=== PATIENT | female | born 1930 | race Caucasian/White ===

== ENCOUNTER 2018-04-30 15:55 | Inpatient (IN) | payer MEDICARE ==
[~2018-04-30] VITALS: Ht 177.8 cm; Wt 111.6 kg
[~2018-04-30 15:55] MED LIST: Z.0.HYDROCHLOROTHIA2 PO; Z.0.LISINOPRIL40 MG PO; Z.0.PANTOPRAZOLE SO4 PO; Z.0.SIMVASTATIN40 MG PO
[2018-04-30 17:08] LABS: BASOPHILS # (AUTO) 0.1 (0.0-0.1); BASOPHILS % 0.4 % (0.0-1.0); EOSINOPHILS # (AUTO) 0.1 (0.0-0.4); EOSINOPHILS % 0.7 % (0.0-6.0); HEMATOCRIT 33.9 % (34.2-44.1); LYMPHOCYTES # (AUTO) 3.4 (1.0-3.2); LYMPHOCYTES % 22.8 % (18.0-39.1); MEAN CORPUSCULAR HGB CONC 32.4 g/dL (31-35); MEAN CORPUSCULAR VOLUME 89.4 fL (81-99); MONOCYTES # (AUTO) 1.3 (0.2-0.8); MONOCYTES % 8.5 % (4.4-11.3); NEUTROPHILS # (AUTO) 9.9 (2.1-6.9); NEUTROPHILS % 67.1 % (38.7-80.0); PLATELET COUNT 414 x10e3/uL (140-360); RED BLOOD COUNT 3.79 x10e6/uL (3.6-5.1); RED CELL DISTRIBUTION WIDTH 13.1 % (11.7-14.4)
[2018-04-30 17:22] LABS: ALANINE AMINOTRANSFERASE 16 IU/L (0-55); ALBUMIN/GLOBULIN RATIO 1.1 (0.8-2.0); ALKALINE PHOSPHATASE 70 IU/L (40-150); ANION GAP 15.4 mmol/L (8-16); BLOOD UREA NITROGEN 23 mg/dL (7-26); BUN/CREATININE RATIO 26 (6-25); CALCIUM 10.4 mg/dL (8.4-10.2); CARBON DIOXIDE 29 mmol/L (22-29); CHLORIDE 90 mmol/L (98-107); CREATINE KINASE 174 IU/L (29-168); CREATININE, SERUM 0.87 mg/dL (0.57-1.11); EST GLOMERULAR FILTRATION RATE > 60 ML/MIN (60-); GLUCOSE 95 mg/dL (74-118); POTASSIUM 4.4 mmol/L (3.5-5.1); SODIUM 130 mmol/L (136-145)
[2018-04-30] MEDS ORDERED: LEVOFLOXACIN 750MG/D5W 150ML 150 ML IV STA (18:01)
--- NOTE | 2018-04-30 18:05 | Diagnostic Imaging Report ---
PROCEDURE: Frontal and lateral views of the chest. COMPARISON: Patients [facility], DX, CHEST 2 VIEWS, 10/14/2010, 12:52. INDICATIONS: COUGH, 2 WEEKS FINDINGS: Lines/tubes: None. Lungs: There is patchy density in the left lower lobe new since the prior examination of 2009 may represent pneumonia in the proper clinical setting. Pleura: Slight blunting of the left lateral and posterior costophrenic sulci may represent a small effusion versus scarring. There is no right pleural effusion or pneumothorax. Heart and mediastinum: The heart and the mediastinum are normal. Bones: No acute bony abnormality. IMPRESSION: 1. Patchy density in the left lower lobe may reflect pneumonia in the proper clinical setting. Recommend followup treatment to document resolution Kathia Lin M.D. Dictated by: Kathia Lin M.D. on 04/30/2018 at 18:09 Electronically approved by: Kathia Lin M.D. on 04/30/2018 at 18:09
[2018-04-30] MEDS ORDERED: CEFTRIAXONE SOD 1 GM VIAL IV SCH (18:15)
[2018-04-30] MEDS ORDERED: LOW DOSE ASPIRI81 MG PO (18:22)
[2018-04-30] MEDS ORDERED: FERROUS SULFAT325 MG PO (18:22)
[2018-04-30 18:55] LABS: BILIRUBIN,URINE NEGATIVE (NEGATIVE); CLARITY,URINE SL CLOUDY (CLEAR); COLOR,URINE YELLOW (YELLOW); KETONES,URINE NEGATIVE (NEGATIVE); LEUKOCYTE ESTERASE ,URINE TRACE (NEGATIVE); NITRITE,URINE NEGATIVE (NEGATIVE); PROTEIN,URINE DIPSTICK NEGATIVE (NEGATIVE); URINE UROBILINOGEN 0.2 mg/dL (0.2 - 1)
[2018-04-30 19:07] LABS: EPITHELIAL CELLS,URINE MODERATE /LPF; MUCUS,URINE FEW (RARE)
[2018-04-30] MEDS: CEFTRIAXONE SOD 1 GM VIAL IV SCH (19:42)
[2018-04-30] MEDS ORDERED: LEVOFLOXACIN 750MG/DEXTROSE PREMIX BAG 150ML IV SCH (19:45)
[2018-04-30] MEDS ORDERED: ACETAMINOPHEN 325 MG TAB PO PRN (20:45)
[2018-04-30] MEDS ORDERED: ALBUTEROL/IPRATROPIUM 3 ML NEB NEB PRN (21:30)
[2018-04-30 21:54] VITALS: BP 150/60
[2018-04-30] MEDS: SODIUM CHLORIDE 0.9% 1000ML 1,000 ML IV SCH (22:02)
[2018-04-30 22:09] VITALS: BP 150/60
[2018-04-30 22:16] VITALS: BP 150/60
[2018-05-01] VITALS (7 sets, daily range): BP systolic 134–158; BP diastolic 60–74
[2018-05-01] MEDS: IPRATROPIUM BROMIDE 0.02% 2.5 ML NEB NEB SCH ×5 (03:10→19:00)
[2018-05-01] MEDS: ALBUTEROL SULF 0.083% NEB SOLN 3 ML NEB NEB SCH ×6 (03:10→23:00)
[2018-05-01] MEDS: LEVOTHYROXINE SODIUM 25 MCG TABLET PO SCH (05:21)
[2018-05-01 06:16] LABS: BASOPHILS % 0.3 % (0.0-1.0); EOSINOPHILS # (AUTO) 0.1 (0.0-0.4); EOSINOPHILS % 0.9 % (0.0-6.0); HEMATOCRIT 31.5 % (34.2-44.1); HEMOGLOBIN 10.4 g/dL (12.0-16.0); LYMPHOCYTES # (AUTO) 2.4 (1.0-3.2); LYMPHOCYTES % 22.9 % (18.0-39.1); MEAN CORPUSCULAR HEMOGLOBIN 29.2 pg (28-32); MEAN CORPUSCULAR VOLUME 88.5 fL (81-99); MONOCYTES # (AUTO) 0.9 (0.2-0.8); MONOCYTES % 8.7 % (4.4-11.3); NEUTROPHILS # (AUTO) 7.1 (2.1-6.9); NEUTROPHILS % 66.7 % (38.7-80.0); PLATELET COUNT 326 x10e3/uL (140-360); RED BLOOD COUNT 3.56 x10e6/uL (3.6-5.1); RED CELL DISTRIBUTION WIDTH 12.8 % (11.7-14.4)
--- NOTE | 2018-05-01 06:19 | Diagnostic Imaging Report ---
EXAM: CHEST SINGLE (PORTABLE), AP 1 view INDICATION: Pneumonia COMPARISON: None FINDINGS: LINES/TUBES: None LUNGS: Airspace opacity right lung base. PLEURA: No effusions or pneumothorax. HEART AND MEDIASTINUM: Normal size and contour. BONES AND SOFT TISSUES: No acute findings. IMPRESSION: Air space opacity in the right lung base suspicious for pneumonia. Signed by: Dr. Delia Mcgee M.D. on 05/01/2018 6:16 AM
[2018-05-01 06:27] LABS: ANION GAP 13.1 mmol/L (8-16); BLOOD UREA NITROGEN 17 mg/dL (7-26); BUN/CREATININE RATIO 25 (6-25); CALCIUM 9.7 mg/dL (8.4-10.2); CARBON DIOXIDE 29 mmol/L (22-29); CHLORIDE 95 mmol/L (98-107); CREATININE, SERUM 0.69 mg/dL (0.57-1.11); EST GLOMERULAR FILTRATION RATE > 60 ML/MIN (60-); GLUCOSE 117 mg/dL (74-118); POTASSIUM 4.1 mmol/L (3.5-5.1); SODIUM 133 mmol/L (136-145)
[2018-05-01] MEDS: ASPIRIN 81 MG ENTERIC COATED PO SCH (08:24)
[2018-05-01] MEDS: FERROUS SULFATE 325 MG TAB PO SCH (08:24)
[2018-05-01] MEDS: LISINOPRIL 20 MG TAB PO SCH (08:24)
[2018-05-01] MEDS ORDERED: SIMVASTATIN 40 MG TAB PO SCH (09:00)
[2018-05-01] MEDS: SODIUM CHLORIDE 0.9% 1000ML 1,000 ML IV SCH ×2 (09:38→20:43)
[2018-05-01] MEDS ORDERED: DOCUSATE SODIUM 100 MG CAP PO PRN (13:30)
--- NOTE | 2018-05-01 14:25 | Consultation ---
DATE OF CONSULTATION: May 01, 2018 PULMONARY CONSULTATION A charming but unfortunate 88-year-old woman short of breath for approximately 2 weeks with cough, fever and chills. Uses a walker. History of falling at home in the past. For this reason, she uses a walker. History of hypertension, degenerative joint disease, hyperlipidemia, hypothyroidism. MEDICATIONS: Include hydrochlorothiazide, aspirin, iron, lisinopril, Zocor, recently on Ceftin and Zithromax. She has had hysterectomy, knee replacement. Worked in a [employer] in [place] at [employer]. She was born in [place]. FAMILY HISTORY: Positive for longevity and an aneurysm that killed her mother. PHYSICAL EXAMINATION GENERAL: This is a well-developed white female in no acute distress. Looking her stated age. VITALS: Temperature 98.8, pulse 72, respirations 19, blood pressure 158/70. She is on nasal oxygen. LUNGS: Diminished breath sounds. HEART: Regular rhythm. ABDOMEN: Nontender. EXTREMITIES: Nonedematous. IMPRESSION 1. Apparent left lower lobe pneumonia. 2. Nonsmoker. Sputum revealed gram-positive and rate gram-negative organisms. Request followup imaging. Will reduce dose of Levaquin for staph cover. Thank you for this kind referral. Job#: [id number] CRIS
--- NOTE | 2018-05-01 14:59 | History and Physical ---
CHIEF COMPLAINT: Coughing, chest congestion, shortness of breath, worsening since last 10 days. HISTORY OF PRESENT ILLNESS: An 88-year-old pleasant white male with the past medical history of multiple medical problems [facility]. Patient complained of chest congestion, coughing of yellow-green phlegm since about 10 days back. Patient was seen in my office, started on p.o. Ceftin. Patient did not get better. Patient came back to my office. We did the chest x-ray, which was showing no pneumonia. Patient was, at that time, started on Ceftin and Z-pack. Patient was not feeling better and hence, patient came to hospital today. I saw patient. He was also having trouble breathing for last couple of days. At present, patient lying comfortably in bed, no apparent distress. No chest pain, no shortness of breath. No nausea, vomiting, diarrhea, no abdominal pain. No loss of consciousness or palpitations, no headaches. No hematemesis, no melena. No hematuria, no dysuria. No fever. No witnessed seizures. PAST MEDICAL HISTORY 1. Hypertension. 2. Dyslipidemia. 3. CHF. 4. DJD. 5. Morbid obesity. MEDICATIONS: As listed in chart. SURGICAL HISTORY: Right total knee replacement, hysterectomy. SOCIAL HISTORY: No smoking. No alcohol. No illicit drug use. REVIEW OF SYSTEMS: As per HPI. ALLERGIES: NO KNOWN DRUG ALLERGIES. PHYSICAL EXAMINATION GENERAL: Patient is alert, awake, oriented times 3, in no apparent distress. VITALS: T-max is 100.3, pulse is 86 per minute, respiratory rate is 18 per minute, blood pressure 146/56, saturation is 98%. HEENT: No cyanosis, no icterus, no pallor. Normocephalic and atraumatic. PERRLA. NECK: Short and supple. No JVD or bruits. LUNGS: Air entry bilaterally equal. HEART: S1, S2. No murmur or gallop. ABDOMEN: Soft, nontender. Bowel sounds present. SYSTEMS MANAGEMENT CONSULTANT: Alert, awake, oriented times 3. No focal deficit. EXTREMITIES: No cyanosis, clubbing. Peripheral pulses palpable. No calf pain. LABS: On admission to ER, white count 14.7, hemoglobin 11, hematocrit 33.9, platelets 414,000. Sodium 130, potassium 4.4, chloride 90, bicarb 29, BUN 23, creatinine 0.8, calcium 10.4. LFTs noted. Cardiac enzymes times 1 negative. Urine shows WBC 6-10, leukocyte was trace. Chest x-ray shows patchy density in left lower lobe. ASSESSMENT 1. Pneumonia, sepsis. 2. History of hypertension, dyslipidemia, congestive heart failure, degenerative joint disease, morbid obesity. PLAN: Admit patient to medical floor. Patient started on IV Rocephin, IV Levaquin. White cultures. Pulmonary consultation Dr. Lanza. ID consultation, Dr. Bryan. Oxygen as needed. Rosy sykes q.6 h p.r.n. Will continue all other home medications. Further care and treatment while the patient is in the hospital. Discussed with the patient and family at bedside in detail. Prognosis guarded. Job#: [id number] CQ
--- NOTE | 2018-05-01 16:18 | Consultation ---
DATE OF CONSULTATION: May 01, 2018 REASON FOR CONSULTATION: Pneumonia. This patient who is a very pleasant 88-year-old white female who has a history of hypertension, hyperlipidemia, congestive heart failure, obesity. The patient was sick about a week ago. She had some cough and some shortness of breath. She was given Ceftin. The patient saw Dr. Love. She was given Ceftin and Z-Jhonatan. Did not feel any better. In fact, she was getting worse. She came to the emergency room. Patient was admitted and discussed the case with Dr. Love. Patient was telling me, so she came here and started on IV antibiotics. She is feeling better. REVIEW OF SYSTEMS GENERAL: At the present time, the patient is doing well. HEENT: There is no headache, visual change or hearing change. GI: There is no nausea. No vomiting. No diarrhea. All systems seem to be within normal limits at the present time. LABORATORY DATA: Reviewed. Chart reviewed. Chest x-ray also reviewed. Her white count on admission 14.72, hemoglobin 11. Sodium 133, potassium 4.1. PHYSICAL EXAMINATION GENERAL: She is currently alert and oriented. Does not seem to be in acute distress. VITALS: Stable. Currently afebrile. HEENT: She is not icteric. NECK: Supple. CHEST: Clear. ABDOMEN: Soft. IMPRESSION: Pneumonia. Continue with Levaquin 500 mg q.24 h. She is at 750 q.24 h. Continue with that. She is also on Rocephin 1 g daily. Await her blood cultures. Recheck CBC. Recheck Chem panel. Will follow. Job#: [id number] CRIS
--- NOTE | 2018-05-01 16:32 | Diagnostic Imaging Report ---
EXAM: CT Chest WITHOUT contrast INDICATION: \S\pneumonia COMPARISON: Chest x-ray 05/01/2018 TECHNIQUE: Chest was scanned utilizing a multidetector helical scanner from the lung apex through the level of the adrenal glands without administration of IV contrast. Absence of intravenous contrast decreases sensitivity for detection of lymphadenopathy and vascular pathology. Coronal and sagittal reformations were obtained. Routine protocol was performed. IV CONTRAST: None COMPLICATIONS: None RADIATION DOSE: Total DLP: 556.7 mGy*cm Estimated effective dose: (DLP x 0.014 x size factor) mSv CTDIvol has been reviewed. It is below the limits set by the Radiation Protocol Committee (RPC). FINDINGS: LINES/ TUBES: None. LUNGS AND AIRWAYS: Findings of chronic lung changes with mild fibrosis with subpleural bands. Bronchiectasis and consolidation within the right middle lobe and lingula. Several calcified granulomas in the right lung apex. Mild bronchial wall thickening. 2 pneumatoceles in the right lung base. Atelectasis in the lung bases. Several scattered nonspecific groundglass opacities. 10.4 mm in the right upper lobe (series 3 image 28). 9.2 mm in the right upper lobe (series 3 image 26). Airways are normal. PLEURA: The pleural spaces are clear. HEART AND MEDIASTINUM: The thyroid gland is normal. No mediastinal, hilar or axillary lymphadenopathy. There is however multiple benign appearing but prominent mediastinal lymph nodes. For example 0.8 cm prevascular (series 2 image 22), 1.1 cm precarinal lymph node (image 24), and 1.2 cm subcarinal left (image 30). The heart is normal in size. There is no pericardial effusion. Severe trivessel coronary artery calcifications. Main pulmonary artery measures 2.0 cm. Ascending aorta measures 4.1 cm. UPPER ABDOMEN: 4.8 cm renal cyst. Upper abdomen is otherwise unremarkable. BONES: There are degenerative changes in the thoracic spine. SOFT TISSUES: Unremarkable. IMPRESSION: 1. Findings of old granulomatous disease with calcified granuloma in the right lung apex and scarring in the lung bases. 2. Bronchial wall thickening, likely atypical infection or reactive airway. 3. Multiple small groundglass nodules in the right upper lobe, likely atypical infection. 4. Bronchiectasis and consolidation in the right middle lobe and lingula, likely atypical infection such as NIKI. 5. Scattered mediastinal lymph nodes which is likely reactive. Signed by: Dr. Eusebio Ron M.D. on 05/01/2018 4:29 PM
[2018-05-01] MEDS: LEVOFLOXACIN 250MG/D5W 50ML PREMIX BAG IV SCH (16:55)
[2018-05-01] MEDS: ENOXAPARIN SOD INJ 40 MG/0.4 ML SYR SC SCH (16:55)
[2018-05-01] MEDS ORDERED: DOXYCYCLINE HYCLATE TABLET 100 MG TAB PO SCH (17:00)
[2018-05-01] MEDS: CEFTRIAXONE SOD 1 GM VIAL IV SCH (19:25)
[2018-05-01] MEDS ORDERED: LEVOFLOXACIN 750MG/DEXTROSE PREMIX BAG 150ML IV SCH (19:45)
[2018-05-01] MEDS: SIMVASTATIN 40 MG TAB PO SCH (20:43)
[2018-05-02] VITALS (10 sets, daily range): BP systolic 128–183; BP diastolic 45–77
[2018-05-02] MEDS: ALBUTEROL SULF 0.083% NEB SOLN 3 ML NEB NEB SCH ×5 (02:30→20:00)
[2018-05-02] MEDS: IPRATROPIUM BROMIDE 0.02% 2.5 ML NEB NEB SCH ×4 (02:30→20:00)
[2018-05-02] MEDS: LEVOTHYROXINE SODIUM 25 MCG TABLET PO SCH (05:02)
[2018-05-02 05:49] LABS: BASOPHILS % 0.4 % (0.0-1.0); EOSINOPHILS # (AUTO) 0.1 (0.0-0.4); EOSINOPHILS % 0.9 % (0.0-6.0); HEMATOCRIT 29.5 % (34.2-44.1); HEMOGLOBIN 9.4 g/dL (12.0-16.0); LYMPHOCYTES # (AUTO) 2.3 (1.0-3.2); LYMPHOCYTES % 23.6 % (18.0-39.1); MEAN CORPUSCULAR HEMOGLOBIN 28.7 pg (28-32); MEAN CORPUSCULAR HGB CONC 31.9 g/dL (31-35); MEAN CORPUSCULAR VOLUME 89.9 fL (81-99); MONOCYTES # (AUTO) 0.9 (0.2-0.8); MONOCYTES % 9.5 % (4.4-11.3); NEUTROPHILS # (AUTO) 6.3 (2.1-6.9); NEUTROPHILS % 65.2 % (38.7-80.0); PLATELET COUNT 325 x10e3/uL (140-360); RED BLOOD COUNT 3.28 x10e6/uL (3.6-5.1)
[2018-05-02 06:08] LABS: ANION GAP 11.7 mmol/L (8-16); BLOOD UREA NITROGEN 16 mg/dL (7-26); BUN/CREATININE RATIO 25 (6-25); CALCIUM 9.2 mg/dL (8.4-10.2); CARBON DIOXIDE 28 mmol/L (22-29); CHLORIDE 97 mmol/L (98-107); CREATININE, SERUM 0.65 mg/dL (0.57-1.11); EST GLOMERULAR FILTRATION RATE > 60 ML/MIN (60-); GLUCOSE 94 mg/dL (74-118); POTASSIUM 4.7 mmol/L (3.5-5.1); SODIUM 132 mmol/L (136-145)
[2018-05-02 06:30] LABS: THYROID STIMULATING HORMONE 1.776 uIU/mL (0.350-4.940)
[2018-05-02] MEDS: FAMOTIDINE 20 MG TAB PO SCH (07:30)
[2018-05-02] MEDS: ASPIRIN 81 MG ENTERIC COATED PO SCH (08:50)
[2018-05-02] MEDS: FERROUS SULFATE 325 MG TAB PO SCH (08:51)
[2018-05-02] MEDS: LISINOPRIL 20 MG TAB PO SCH (08:51)
[2018-05-02] MEDS: SODIUM CHLORIDE 0.9% 1000ML 1,000 ML IV SCH (11:13)
[2018-05-02] MEDS ORDERED: CLONIDINE HCL 0.1 MG TAB PO PRN (15:00)
[2018-05-02] MEDS: CARVEDILOL 12.5 MG TAB PO SCH (17:22)
[2018-05-02] MEDS: ENOXAPARIN SOD INJ 40 MG/0.4 ML SYR SC SCH (17:23)
[2018-05-02] MEDS: LEVOFLOXACIN 250MG/D5W 50ML PREMIX BAG IV SCH (17:23)
[2018-05-02] MEDS: CEFTRIAXONE SOD 1 GM VIAL IV SCH (19:46)
[2018-05-02] MEDS: SIMVASTATIN 40 MG TAB PO SCH (19:46)
[2018-05-03] MEDS: IPRATROPIUM BROMIDE 0.02% 2.5 ML NEB NEB SCH ×4 (00:30→19:45)
[2018-05-03] MEDS: ALBUTEROL SULF 0.083% NEB SOLN 3 ML NEB NEB SCH ×6 (00:30→19:45)
[2018-05-03] MEDS: SODIUM CHLORIDE 0.9% 1000ML 1,000 ML IV SCH (03:07)
[2018-05-03 03:45] VITALS: BP 133/58
[2018-05-03] MEDS: LEVOTHYROXINE SODIUM 25 MCG TABLET PO SCH (05:19)
[2018-05-03 06:10] LABS: HEMATOCRIT 30.4 % (34.2-44.1); HEMOGLOBIN 9.6 g/dL (12.0-16.0); MEAN CORPUSCULAR HEMOGLOBIN 28.7 pg (28-32); MEAN CORPUSCULAR HGB CONC 31.6 g/dL (31-35); PLATELET COUNT 320 x10e3/uL (140-360); RED BLOOD COUNT 3.34 x10e6/uL (3.6-5.1)
[2018-05-03 06:21] LABS: INR 1.16; PROTHROMBIN TIME 13.9 seconds (11.9-14.5)
[2018-05-03 06:30] LABS: ALANINE AMINOTRANSFERASE 13 IU/L (0-55); ALBUMIN 2.8 g/dL (3.5-5.0); ALBUMIN/GLOBULIN RATIO 0.9 (0.8-2.0); ALKALINE PHOSPHATASE 52 IU/L (40-150); ANION GAP 10.4 mmol/L (8-16); BLOOD UREA NITROGEN 11 mg/dL (7-26); BUN/CREATININE RATIO 18 (6-25); CALCIUM 9.2 mg/dL (8.4-10.2); CARBON DIOXIDE 29 mmol/L (22-29); CHLORIDE 99 mmol/L (98-107); CHOL/HDL RATIO 3.1 (3.0-3.6); CHOLESTEROL 124 MD/DL (0-199); CREATININE, SERUM 0.61 mg/dL (0.57-1.11); EST GLOMERULAR FILTRATION RATE > 60 ML/MIN (60-); GLUCOSE 95 mg/dL (74-118); HDL CHOLESTEROL 40 MG/DL (40-60); LDL CHOLESTEROL 67 MG/DL (60-130); POTASSIUM 4.4 mmol/L (3.5-5.1); SODIUM 134 mmol/L (136-145); TRIGLYCERIDES 83 MG/DL (0-149)
[2018-05-03 07:01] LABS: EOSINOPHILS % (MANUAL) 1 % (0-7); LYMPHOCYTES % (MANUAL) 38 % (19-48); MONOCYTES % (MANUAL) 2 % (3.4-9.0); NEUTROPHILS % (MANUAL) 58 % (40-74)
[2018-05-03 07:02] LABS: ANISOCYTOSIS SLIGHT; HYPOCHROMASIA SLIGHT; PLATELET ESTIMATE ADEQUATE; PLATELET MORPHOLOGY COMMENT NORMAL; RBC MORPHOLOGY COMMENT NORMAL
[2018-05-03] MEDS: FAMOTIDINE 20 MG TAB PO SCH (08:15)
[2018-05-03 08:46] VITALS: BP 195/98
[2018-05-03] MEDS: CARVEDILOL 12.5 MG TAB PO SCH ×2 (08:56→17:10)
[2018-05-03] MEDS: FERROUS SULFATE 325 MG TAB PO SCH (08:56)
[2018-05-03] MEDS: ASPIRIN 81 MG ENTERIC COATED PO SCH (08:56)
[2018-05-03] MEDS: LISINOPRIL 20 MG TAB PO SCH (08:57)
[2018-05-03 12:17] VITALS: BP 155/70
[2018-05-03] MEDS: LEVOFLOXACIN 250MG/D5W 50ML PREMIX BAG IV SCH (17:10)
[2018-05-03] MEDS: ENOXAPARIN SOD INJ 40 MG/0.4 ML SYR SC SCH (17:10)
[2018-05-03 19:34] VITALS: BP 137/71
[2018-05-03] MEDS: CEFTRIAXONE SOD 1 GM VIAL IV SCH (19:45)
[2018-05-03 20:45] VITALS: BP 137/71
[2018-05-03] MEDS: SIMVASTATIN 40 MG TAB PO SCH (20:45)
[2018-05-04] VITALS: BP 145/66
[2018-05-04] MEDS: ALBUTEROL SULF 0.083% NEB SOLN 3 ML NEB NEB SCH ×6 (01:15→19:30)
[2018-05-04] MEDS: IPRATROPIUM BROMIDE 0.02% 2.5 ML NEB NEB SCH ×4 (01:15→19:30)
[2018-05-04 05:52] VITALS: BP 130/60
[2018-05-04] MEDS: LEVOTHYROXINE SODIUM 25 MCG TABLET PO SCH (06:19)
[2018-05-04] MEDS: FAMOTIDINE 20 MG TAB PO SCH (08:10)
[2018-05-04 08:16] VITALS: BP 146/72
[2018-05-04] MEDS: ASPIRIN 81 MG ENTERIC COATED PO SCH (08:51)
[2018-05-04] MEDS: FERROUS SULFATE 325 MG TAB PO SCH (08:52)
[2018-05-04] MEDS: CARVEDILOL 12.5 MG TAB PO SCH ×2 (08:52→16:27)
[2018-05-04] MEDS: LISINOPRIL 20 MG TAB PO SCH (08:52)
[2018-05-04 12:59] VITALS: BP 134/67
[2018-05-04] MEDS: ENOXAPARIN SOD INJ 40 MG/0.4 ML SYR SC SCH (16:27)
[2018-05-04 16:41] VITALS: BP 141/67
[2018-05-04] MEDS: LEVOFLOXACIN 250MG/D5W 50ML PREMIX BAG IV SCH (17:00)
[2018-05-04 20:10] VITALS: BP 92/64
[2018-05-04] MEDS: SIMVASTATIN 40 MG TAB PO SCH (20:15)
[2018-05-04] MEDS: CEFTRIAXONE SOD 1 GM VIAL IV SCH (20:15)
[2018-05-05] VITALS (7 sets, daily range): BP systolic 133–171; BP diastolic 62–91
[2018-05-05] MEDS: ALBUTEROL SULF 0.083% NEB SOLN 3 ML NEB NEB SCH ×7 (00:30→23:15)
[2018-05-05] MEDS: IPRATROPIUM BROMIDE 0.02% 2.5 ML NEB NEB SCH ×4 (00:45→18:55)
[2018-05-05] MEDS: LEVOTHYROXINE SODIUM 25 MCG TABLET PO SCH (06:15)
[2018-05-05 06:29] LABS: BASOPHILS # (AUTO) 0.1 (0.0-0.1); BASOPHILS % 0.6 % (0.0-1.0); EOSINOPHILS # (AUTO) 0.1 (0.0-0.4); EOSINOPHILS % 1.7 % (0.0-6.0); HEMATOCRIT 32.9 % (34.2-44.1); HEMOGLOBIN 10.4 g/dL (12.0-16.0); LYMPHOCYTES # (AUTO) 2.6 (1.0-3.2); LYMPHOCYTES % 32.1 % (18.0-39.1); MEAN CORPUSCULAR HEMOGLOBIN 29.3 pg (28-32); MEAN CORPUSCULAR HGB CONC 31.6 g/dL (31-35); MEAN CORPUSCULAR VOLUME 92.7 fL (81-99); MONOCYTES # (AUTO) 0.8 (0.2-0.8); MONOCYTES % 9.4 % (4.4-11.3); NEUTROPHILS # (AUTO) 4.5 (2.1-6.9); PLATELET COUNT 341 x10e3/uL (140-360); RED BLOOD COUNT 3.55 x10e6/uL (3.6-5.1); RED CELL DISTRIBUTION WIDTH 12.8 % (11.7-14.4)
[2018-05-05 06:57] LABS: ALANINE AMINOTRANSFERASE 13 IU/L (0-55); ALBUMIN 3.2 g/dL (3.5-5.0); ALBUMIN/GLOBULIN RATIO 0.9 (0.8-2.0); ALKALINE PHOSPHATASE 71 IU/L (40-150); ANION GAP 13.1 mmol/L (8-16); BLOOD UREA NITROGEN 15 mg/dL (7-26); BUN/CREATININE RATIO 22 (6-25); CARBON DIOXIDE 31 mmol/L (22-29); CHLORIDE 97 mmol/L (98-107); CREATININE, SERUM 0.69 mg/dL (0.57-1.11); EST GLOMERULAR FILTRATION RATE > 60 ML/MIN (60-); GLUCOSE 92 mg/dL (74-118); POTASSIUM 5.1 mmol/L (3.5-5.1); SODIUM 136 mmol/L (136-145)
[2018-05-05] MEDS: FAMOTIDINE 20 MG TAB PO SCH (08:55)
[2018-05-05] MEDS: ASPIRIN 81 MG ENTERIC COATED PO SCH (08:55)
[2018-05-05] MEDS: FERROUS SULFATE 325 MG TAB PO SCH (08:56)
[2018-05-05] MEDS: CARVEDILOL 12.5 MG TAB PO SCH ×2 (08:56→17:21)
[2018-05-05] MEDS: LISINOPRIL 20 MG TAB PO SCH (08:57)
[2018-05-05] MEDS: ENOXAPARIN SOD INJ 40 MG/0.4 ML SYR SC SCH (17:21)
[2018-05-05] MEDS: LEVOFLOXACIN 250MG/D5W 50ML PREMIX BAG IV SCH (17:21)
[2018-05-05] MEDS: SIMVASTATIN 40 MG TAB PO SCH (20:21)
[2018-05-05] MEDS: CEFTRIAXONE SOD 1 GM VIAL IV SCH (20:21)
[2018-05-06 00:45] VITALS: BP 140/56
[2018-05-06] MEDS: IPRATROPIUM BROMIDE 0.02% 2.5 ML NEB NEB SCH ×3 (02:08→15:08)
[2018-05-06] MEDS: ALBUTEROL SULF 0.083% NEB SOLN 3 ML NEB NEB SCH ×4 (02:08→15:08)
[2018-05-06] MEDS: LEVOTHYROXINE SODIUM 25 MCG TABLET PO SCH (05:36)
[2018-05-06 05:59] VITALS: BP 121/52
[2018-05-06 07:58] VITALS: BP 157/75
[2018-05-06 08:00] VITALS: BP 157/75
[2018-05-06] MEDS: LISINOPRIL 20 MG TAB PO SCH (08:03)
[2018-05-06] MEDS: CARVEDILOL 12.5 MG TAB PO SCH ×2 (08:03→17:00)
[2018-05-06] MEDS: FERROUS SULFATE 325 MG TAB PO SCH (08:03)
[2018-05-06] MEDS: FAMOTIDINE 20 MG TAB PO SCH (08:03)
[2018-05-06] MEDS: ASPIRIN 81 MG ENTERIC COATED PO SCH (08:03)
[2018-05-06 12:02] VITALS: BP 145/64
[2018-05-06] MEDS ORDERED: AUGMENTIN 875-1 EACH PO (13:04)
[2018-05-06 16:17] VITALS: BP 155/74
[2018-05-06] MEDS: ENOXAPARIN SOD INJ 40 MG/0.4 ML SYR SC SCH (17:00)
[2018-05-06] MEDS: LEVOFLOXACIN 250MG/D5W 50ML PREMIX BAG IV SCH (17:52)
--- NOTE | 2018-06-24 19:20 | Discharge Summary ---
CHIEF COMPLAINT: Left lower lobe pneumonia, hypoxemia FINAL DIAGNOSES 1. Left lower lobe pneumonia. 2. Fever, resolved. 3. Leukocytosis, resolved. 4. Obesity. DISPOSITION: Home with home health. An 88-year-old male with history of multiple medical problems, presents to the ER with issues of cough and chest congestion, shortness of breath, progressively worsening over the last 10 days. Had been seen in my office and was started on Ceftin p.o. Failed to improve and came back to my office. Was continuing on Ceftin as well as Z-Jhonatan and he was not feeling any better. He presented to the ER and was evaluated further in the emergency room. The patient was admitted to the facility for care regarding pneumonia, sepsis, history of hypertension, dyslipidemia, congestive heart failure, degenerative joint disease, morbid obesity. His previous chest x-ray on an outpatient basis was unremarkable, but his chest x-ray done in the ER was showing issues of patchy density in the left lower lobe. With admission regarding his presentation, he is reviewed by Dr. Gould and with his review his impression was apparent left lower lobe pneumonia, nonsmoker. Infectious disease with Dr. Bryan was following as well regarding issues of pneumonia. His impression was pneumonia, and recommended continuing the antibiotic of Levaquin and also she is on Rocephin. The patient was on the med/surg floor receiving a cardiac diet . Vital signs were stable. She was on respiratory treatments, receiving ceftriaxone 1 gram IV q.24 along with levofloxacin 750 mg IV q.24. Daily medications were continuing also. She was also placed on DVT prophylaxis with Lovenox 40 mg subcutaneously daily. Laboratory studies were stable. Medications were continuing. The patient was also receiving supplemental O2 nasal cannula. Doxycycline was added to the antibiotic panel. Blood cultures were negative. Sputum cultures showing gram-positive and gram-negative. Responding well to nebulizer treatments and was doing well with the antibiotic coverage, slowly improving. Antibiotics now continuing with Rocephin and Levaquin as of 05/04. Discussions are being made to assess the patient for home O2 usage. Dr. Bryan was setting the patient up to receive Augmentin once discharged at home for 10 days as well as to complete a Z-jhonatan. The patient was showing evidence of being hypoxic on room air and was being set up for home O2. Case management was assisting in this process. Stability was further noted and the patient was discharged on 05/06/18 to home. EKG shows normal sinus rhythm, cannot rule out anterior infarct age undetermined. With discharge home, the patient was set up with [facility]. The home O2 will be set up with [facility]. Patient will continue on current diet. Will be on home O2 nasal cannula. No drains or Noel needed. Activity level as directed by me. She was given a prescription for Augmentin 875/125 one tablet twice a day. Aspirin 81 mg daily. Ferrous sulfate 325 daily. Hydrochlorothiazide 25 mg daily. Lisinopril 40 mg daily. Simvastatin 40 mg daily. Also prescription for Z-Jhonatan, take as directed. Following back up with me in my office within the next 3 to 5 days. [facility] will be contacting me sooner if they notice any negative change in her condition. Dictated by LAYO Meneses DEBORAH OLSEN MD Job#: [id number]
--- OUTSIDE RECORDS SUMMARY | 2018-08-18 12:54 | XMS REPORT ---
[facility] Address Unknown Phone Unavailable Care Team Providers Care Candy Dipper Name Role Phone ESTHER HAMEED Unavailable Unavailable DEBORAH OLSEN Unavailable Unavailable Payers Payer Name Policy Type Policy Number Effective Date Expiration Date Problems This patient has no known problems. Allergies, Adverse Reactions, Alerts Allergy Name Allergy Type Status Severity Reaction(s) Onset Date Inactive Date Treating Clinician Comments No Known Allergies DA Active U 2017-04-27 00:00:00 Medications This patient has no known medications. Results Test Description Test Time Test Comments Text Results Atomic Results Result Comments CT CHEST WO 2018-07-14 14:29:00 [place] [address] Patient Name: CHAS THOMPSON MR #: [id number] : 1930 Age/Sex: 88/F Req #: [id number] Adm Physician: Ordered by: ESTHER HAMEED MD Report #: [id number] Location: CT Room/Bed: Procedure: [id number] CT/CT CHEST WO Exam Date: Exam Time: REPORT STATUS: Signed PROCEDURE: CT CHEST WITHOUT CONTRAST CT scan of the chest WITHOUT intravenous contrast, using standard protocol. TECHNIQUE: The chest was scanned utilizing a multidetector helical scanner from the apex to the level of the adrenal glands. No IV contrast was administered per protocol. Coronal and sagittal multiplanar reformations were obtained. COMPARISON: CT Chest 05/01/18. INDICATIONS: COUGH, SHORTNESS OF BREATH. PNEUMONIA IN APRIL FINDINGS : Lines/tubes: None. Lungs and Airways: Again noted are findings of chronic mild fibrotic changes of the lungs with subpleural reticular opacity. There is bronchiectasis and consolidation in the middle lobe as before. Consolidation in the lingula has improved. Previously noted right upper lobe ground glass opacities have resolved. There is a new 3 mm ground glass nodule in the right upper lobe on series 3, image 27. There is mild bronchial wall thickening. Two pneumatoceles are noted at the right lung base. Calcified granulomas are present at the right lung apex. Scattered dependent atelectasis. Pleura: No evidence of pneumothorax or pleural effusion. Right apical pleural parenchymal opacity is unchanged. Heart and mediastinum: The thyroid gland is normal. No mediastinal, hilar or axillary lymphadenopathy. Mildly prominent pre-vascular and subcarinal lymph nodes are again present, likely reactive. No cardiomegaly or pericardial effusion. Extensive coronary and aortic atherosclerotic vascular calcifications. Ascending aortic measures 4.1 cm. Soft tissues: Normal. Abdomen: Limited views of the upper abdomen show no abnormality within the visualized liver, spleen, or pancreas. Partially seen left sided renal cyst measuring fluid density. Additional subcentimeter left upper pole lesion, too small to characterize, but likely representing a cyst. The adrenal glands are normal. Bones: No acute bony findings. IMPRESSION: Bronchiectasis and consolidation in the right middle lobe , likely atypical infection such as NIKI. Interval resolution of consolidation in the lingula. Interval resolution of two ground glass right upper lobe nodules, likely infectious. New 3 mm right upper lobe ground glass nodule, likely infectious or inflammatory. Sequela of prior granulomatous disease as above. Dictated by: SATHISH KATHLEEN M.D. on 2017 at 14:29 Electronically approved by: SATHISH KATHLEEN M.D. on 07/14/2018 at 14:29 Dictated By: SATHISH KATHLEEN MD [id number] Transcribed By: RENUKA on 07/14/181428 COPY TO: ESTHER HAMEED MD CT CHEST WO 2018-05-01 16:20:00 [place] [id number] [place] [address] Patient Name: CHAS THOMPSON MR #: [id number] : 1930 Age/Sex: 88/F Req #: [id number] Adm Physician: DEBORAH OLSEN MD Ordered by: RACHANA MCGILL MD Report #: [id number] Location: MED/SURG2 Room/Bed: [facility] _ Procedure: [id number] CT/CT CHEST WO Exam Date: Exam Time: REPORT STATUS: Signed EXAM: CT Chest WITHOUT contrast INDICATION: S pneumonia COMPARISON: Chest x-ray TECHNIQUE: Chest was scanned utilizing a multidetector helical scanner from the lung apex through the level of the adrenal glands without administration of IV contrast. Absence of intravenous contrast decreases sensitivity for detection of lymphadenopathy and vascular pathology. Coronal and sagittal reformations were obtained. Routine protocol was performed. IV CONTRAST: None COMPLICATIONS: None RADIATION DOSE: Total DLP: 556.7 mGy*cm Estimated effective dose: (DLP x 0.014 x size factor) mSv CTDIvol has been reviewed. It is below the limits set by the Radiation Protocol Committee (RPC). FINDINGS: LINES/ TUBES: None. LUNGS AND AIRWAYS: Findings of chronic lung changes with mild fibrosis with subpleural bands. Bronchiectasis and consolidation within the right middle lobe and lingula. Several calcified granulomas in the right lung apex. Mild bronchial wall thickening. 2 pneumatoceles in the right lung base. Atelectasis in the lung bases. Several scattered nonspecific groundglass opacities. 10.4 mm in the right upper lobe (series 3 image 28). 9.2 mm in the right upper lobe (series 3 image 26). Airways are normal. PLEURA: The pleural spaces are clear. HEART AND MEDIASTINUM: The thyroid gland is normal. No mediastinal, hilar or axillary lymphadenopathy. There is however multiple benign appearing but prominent mediastinal lymph nodes. For example 0.8 cm prevascular (series 2 image 22), 1.1 cm precarinal lymph node (image 24), and 1.2 cm subcarinal left (image 30). The heart is normal in size. There is no pericardial effusion. Severe trivessel coronary artery calcifications. Main pulmonary artery measures 2.0 cm. Ascending aorta measures 4.1 cm. UPPER ABDOMEN: 4.8 cm renal cyst. Upper abdomen is otherwise unremarkable. BONES: There are degenerative changes in the thoracic spine. SOFT TISSUES: Unremarkable. IMPRESSION: 1. Findings of old granulomatous disease with calcified granuloma in the right lung apex and scarring in the lung bases. 2. Bronchial wall thickening, likely atypical infection or reactive airway. 3. Multiple small groundglass nodules in the right upper lobe, likely atypical infection. 4. Bronchiectasis and consolidation in the right middle lobe and lingula, likely atypical infection such as NIKI. 5. Scattered mediastinal lymph nodes which is likely reactive. Signed by: Dr. Eusebio Barry M.D. on 05/01/2018 4:29 PM Dictated By: EUSEBIO BARRY MD 28 Transcribed By: HERBERT on 05/01/181628 COPY TO: RACHANA MCGILL MD CHEST SINGLE (PORTABLE) 2018-05-01 06:15:00 [place] [address] Patient Name: CHAS THOMPSON MR #: [id number] : 1930 Age/Sex: 88/F Req #: [id number] Adm Physician: DEBORAH OLSEN MD Ordered by: TONY APONTE MD Report #: [id number] Location: MED/SURG2 Room /Bed: [facility] Procedure: [id number] DX/CHEST SINGLE ( PORTABLE) Exam Date: 05/01/18 Exam Time: 0535 REPORT STATUS: Signed EXAM: CHEST SINGLE (PORTABLE), AP 1 view INDICATION: Pneumonia COMPARISON: None FINDINGS: LINES/TUBES: None LUNGS: Airspace opacity right lung base. PLEURA: No effusions or pneumothorax. HEART AND MEDIASTINUM: Normal size and contour. BONES AND SOFT TISSUES : No acute findings. IMPRESSION: Air space opacity in the right lung base suspicious for pneumonia. Signed by: Dr. Sherwin Mcgee M.D. on 05/01/2018 6:16 AM Dictated By: SHERWIN MCGEE MD 5 Transcribed By: HERBERT on 615 COPY TO: TONY APONTE MD CHEST 2 VIEWS 2018-04-30 18:09:00 [place] [address] Patient Name: CHAS THOMPSON MR #: [id number] : 1930 Age/Sex: 88/F Req #: [id number] Adm Physician: Ordered by: TONY APONTE MD Report #: [id number] Location: ER Room/Bed: Procedure: [id number] DX/CHEST 2 VIEWS Exam Date: 04/30/18 Exam Time: 1720 REPORT STATUS: Signed PROCEDURE: Frontal and lateral views of the chest. COMPARISON: [facility], DX, CHEST 2 VIEWS, 10/14/2010, 12:52. INDICATIONS: COUGH, 2 WEEKS FINDINGS: Lines/tubes: None. Lungs: There is patchy density in the left lower lobe new since the prior examination of 2009 may represent pneumonia in the proper clinical setting. Pleura: Slight blunting of the left lateral and posterior costophrenic sulci may represent a small effusion versus scarring. There is no right pleural effusion or pneumothorax. Heart and mediastinum: The heart and the mediastinum are normal. Bones: No acute bony abnormality. IMPRESSION: 1. Patchy density in the left lower lobe may reflect pneumonia in the proper clinical setting. Recommend followup treatment to document resolution Kathia Valle M.D. Dictated by: Kathia Valle M.D. on 04/30/2018 at 18:09 Electronically approved by: Kathia Valle M.D. on 04/30/2018 at 18:09 Dictated By: TAMICA VALLE MD, MD 180 Transcribed By : RENUKA on 04/30/181808 COPY TO: TONY APONTE MD
== END 2018-05-06 18:05 | disposition home or self-care (01) | DRG 871 ==
LOC: ER 15:55 → ERHOLD 19:37 → MED/SURG2 20:58
PROVIDERS: ADMIT Internal Medicine; ATTEND Internal Medicine
DX: A41.9 Sepsis, unspecified organism (principal); J18.9 Pneumonia, unspecified organism; E66.01 Morbid (severe) obesity due to excess calories; Z68.35 Body mass index [BMI] 35.0-35.9, adult
CPT/HCPCS: 36415; 71045; 71046; 71250; 80048; 80053; 80061; 81001; 82270; 82550; 82553; 82607; 83880; 84443; 84484; 85007; 85025; 85027; 85610; 87040; 87070; 87086; 87116; 87205; 87206; 93005; 94640; 99284; J0696; J1650; J1956; J7030

== ENCOUNTER → 2018-07-14 | Outpatient (CLI) | payer MEDICARE ==
[~2018-07-14] MED LIST changes: +AUGMENTIN 875-1 EACH PO; +FERROUS SULFAT325 MG PO; +LOW DOSE ASPIRI81 MG PO
--- NOTE | 2018-07-14 14:23 | Diagnostic Imaging Report ---
PROCEDURE: CT CHEST WITHOUT CONTRAST CT scan of the chest WITHOUT intravenous contrast, using standard protocol. TECHNIQUE: The chest was scanned utilizing a multidetector helical scanner from the apex to the level of the adrenal glands. No IV contrast was administered per protocol. Coronal and sagittal multiplanar reformations were obtained. COMPARISON: CT Chest 05/01/18. INDICATIONS: COUGH, SHORTNESS OF BREATH. PNEUMONIA IN APRIL FINDINGS: Lines/tubes: None. Lungs and Airways: Again noted are findings of chronic mild fibrotic changes of the lungs with subpleural reticular opacity. There is bronchiectasis and consolidation in the middle lobe as before. Consolidation in the lingula has improved. Previously noted right upper lobe ground glass opacities have resolved. There is a new 3 mm ground glass nodule in the right upper lobe on series 3, image 27. There is mild bronchial wall thickening. Two pneumatoceles are noted at the right lung base. Calcified granulomas are present at the right lung apex. Scattered dependent atelectasis. Pleura: No evidence of pneumothorax or pleural effusion. Right apical pleural parenchymal opacity is unchanged. Heart and mediastinum: The thyroid gland is normal. No mediastinal, hilar or axillary lymphadenopathy. Mildly prominent pre-vascular and subcarinal lymph nodes are again present, likely reactive. No cardiomegaly or pericardial effusion. Extensive coronary and aortic atherosclerotic vascular calcifications. Ascending aortic measures 4.1 cm. Soft tissues: Normal. Abdomen: Limited views of the upper abdomen show no abnormality within the visualized liver, spleen, or pancreas. Partially seen left sided renal cyst measuring fluid density. Additional subcentimeter left upper pole lesion, too small to characterize, but likely representing a cyst. The adrenal glands are normal. Bones: No acute bony findings. IMPRESSION: Bronchiectasis and consolidation in the right middle lobe, likely atypical infection such as NIKI. Interval resolution of consolidation in the lingula. Interval resolution of two ground glass right upper lobe nodules, likely infectious. New 3 mm right upper lobe ground glass nodule, likely infectious or inflammatory. Sequela of prior granulomatous disease as above. Dictated by: SATHISH KATHLEEN M.D. on 07/14/2018 at 14:29 Electronically approved by: SATHISH KATHLEEN M.D. on 07/14/2018 at 14:29
== END ==
LOC: CT 13:10
PROVIDERS: ATTEND Internal Medicine
DX: R91.8 Other nonspecific abnormal finding of lung field (principal); R05 Cough; J45.909 Unspecified asthma, uncomplicated; I10 Essential (primary) hypertension
CPT/HCPCS: 71250

== ENCOUNTER 2018-11-23 17:51 | Emergency (ER) | payer MEDICARE ==
[~2018-11-23] VITALS: Ht 177.8 cm; Wt 111.6 kg
[2018-11-23] MEDS ORDERED: ASPIRIN 81 MG CHEW TAB PO ONE (18:45)
[2018-11-23 19:41] LABS: CLARITY,URINE HAZY (CLEAR); COLOR,URINE YELLOW (YELLOW)
[2018-11-23 19:42] LABS: BACTERIA,URINE MODERATE /HPF; BILIRUBIN,URINE NEGATIVE (NEGATIVE); EPITHELIAL CELLS,URINE MODERATE /LPF; KETONES,URINE NEGATIVE (NEGATIVE); LEUKOCYTE ESTERASE ,URINE NEGATIVE (NEGATIVE); NITRITE,URINE NEGATIVE (NEGATIVE); PROTEIN,URINE DIPSTICK NEGATIVE (NEGATIVE); URINE UROBILINOGEN 0.2 mg/dL (0.2 - 1); WBC,URINE (MAN) 0-5 /HPF (0-5)
[2018-11-23 19:53] LABS: BASOPHILS # (AUTO) 0.1 (0.0-0.1); BASOPHILS % 0.8 % (0.0-1.0); EOSINOPHILS # (AUTO) 0.2 (0.0-0.4); EOSINOPHILS % 2.4 % (0.0-6.0); HEMATOCRIT 34.3 % (34.2-44.1); HEMOGLOBIN 10.8 g/dL (12.0-16.0); LYMPHOCYTES # (AUTO) 1.6 (1.0-3.2); LYMPHOCYTES % 24.9 % (18.0-39.1); MEAN CORPUSCULAR HEMOGLOBIN 28.3 pg (28-32); MEAN CORPUSCULAR HGB CONC 31.5 g/dL (31-35); MEAN CORPUSCULAR VOLUME 89.8 fL (81-99); MONOCYTES # (AUTO) 0.6 (0.2-0.8); MONOCYTES % 9.8 % (4.4-11.3); NEUTROPHILS % 61.6 % (38.7-80.0); PLATELET COUNT 311 x10e3/uL (140-360); RED BLOOD COUNT 3.82 x10e6/uL (3.6-5.1); RED CELL DISTRIBUTION WIDTH 14.5 % (11.7-14.4)
[2018-11-23 20:08] LABS: ALANINE AMINOTRANSFERASE 17 IU/L (0-55); ALBUMIN 3.8 g/dL (3.5-5.0); ALBUMIN/GLOBULIN RATIO 1.2 (0.8-2.0); ALKALINE PHOSPHATASE 67 IU/L (40-150); ANION GAP 13.3 mmol/L (8-16); BLOOD UREA NITROGEN 19 mg/dL (7-26); BUN/CREATININE RATIO 24 (6-25); CALCIUM 9.9 mg/dL (8.4-10.2); CARBON DIOXIDE 28 mmol/L (22-29); CHLORIDE 102 mmol/L (98-107); CREATINE KINASE 96 IU/L (29-168); EST GLOMERULAR FILTRATION RATE > 60 ML/MIN (60-); GLUCOSE 83 mg/dL (74-118); POTASSIUM 4.3 mmol/L (3.5-5.1); SODIUM 139 mmol/L (136-145)
--- NOTE | 2018-11-23 20:12 | Diagnostic Imaging Report ---
EXAM: CHEST SINGLE (PORTABLE), AP 1 view INDICATION: Pain. COMPARISON: 05/01/2018. FINDINGS: LINES/TUBES: None LUNGS: Mild prominence of the pulmonary vasculature bilaterally. Patchy density again observed in the right lung base suggestive of atelectasis versus scarring. PLEURA: No effusions or pneumothorax. HEART AND MEDIASTINUM: The cardiac silhouette is mildly enlarged. BONES AND SOFT TISSUES: No acute findings. IMPRESSION: Mild pulmonary venous congestion. Signed by: Dr. Kathia Lin M.D. on 11/23/2018 8:08 PM
[2018-11-23 20:16] LABS: INR 0.86; PROTHROMBIN TIME 12.5 seconds (11.9-14.5)
[2018-11-23 20:17] LABS: PARTIAL THROMBOPLASTIN TIME 27.6 seconds (23.8-35.5)
[2018-11-23] MEDS ORDERED: BACTRIM DS TAB1 EACH PO (23:56)
[2018-11-23 23:57] VITALS: BP 138/59
== END 2018-11-24 00:08 | disposition home or self-care (01) ==
LOC: ER 17:51
DX: L03.115 Cellulitis of right lower limb (principal); I87.2 Venous insufficiency (chronic) (peripheral)
CPT/HCPCS: 36415; 71045; 80053; 81001; 82550; 82553; 83880; 84484; 85025; 85379; 85610; 85730; 93005; 93970; 99284

== ENCOUNTER → 2019-03-01 | Outpatient (CLI) | payer MEDICARE ==
[~2019-03-01] MED LIST changes: +BACTRIM DS TAB1 EACH PO
--- NOTE | 2019-03-01 16:31 | Diagnostic Imaging Report ---
EXAM: CT Chest WITHOUT contrast 03/01/2019 1:49 PM INDICATION: Lung nodules COMPARISON: Chest CT, 07/14/2018, 05/01/2018 TECHNIQUE: Chest was scanned utilizing a multidetector helical scanner from the lung apex through the level of the adrenal glands without administration of IV contrast. Absence of intravenous contrast decreases sensitivity for detection of lymphadenopathy and vascular pathology. Coronal and sagittal reformations were obtained. Routine protocol was performed. Dose modulation, iterative reconstruction, and/or weight based adjustment of the mA/kV was utilized to reduce the radiation dose to as low as reasonably achievable. IV CONTRAST: None RADIATION DOSE: Total DLP: 576.48 mGy*cm Estimated effective dose: (DLP x 0.014 x size factor) mSv COMPLICATIONS: None FINDINGS: LINES/ TUBES: None. LUNGS AND AIRWAYS: Stable 1.0 cm nodule posterior right lung apex which is partially calcified compatible with granuloma. An additional granulomatous calcifications also seen in the right upper lobe. There is stable bronchiectasis, consolidation and bleb formation in the right middle lobe. Additional peripheral bleb is seen in the right lower lobe. Stable 3 mm nodule in the right upper lobe (series 3, image 31). No new nodules or areas of consolidation. Trachea and main bronchi are clear. Bilateral perihilar bronchial wall thickening again noted. PLEURA: No pleural effusion, pneumothorax or pleural calcification. HEART AND MEDIASTINUM: The thyroid gland is normal. No mediastinal, hilar or axillary lymphadenopathy. Stable scattered nodes in the prevascular, subcarinal and pretracheal areas, likely reactive. The heart is normal in size.. There is no pericardial effusion. The thoracic aorta is atherosclerotic with scattered calcified plaques. Coronary artery calcifications are seen. Ascending thoracic aorta is ectatic measuring 4.0 cm. No dilatation of the main pulmonary artery. UPPER ABDOMEN: Included portions of the liver, spleen, pancreas, adrenals unremarkable. Again noted is a partially visualized 4.5 cm left renal cyst. BONES: No acute or suspicious bony lesion. There are degenerative changes in the thoracic spine. SOFT TISSUES: Superficial surrounding soft tissue unremarkable. There are surgical clips in the left axilla. IMPRESSION: 1. Stable 3 mm nodule in the right upper lobe. 2. Stable bronchiectasis and consolidation in the right middle lobe. 3. No new consolidation or pulmonary nodules. Sequelae of prior granulomatous disease noted Signed by: Dr. Cale Renner M.D. on 03/01/2019 4:27 PM
== END ==
LOC: CT 13:41
PROVIDERS: ATTEND Internal Medicine
DX: R91.8 Other nonspecific abnormal finding of lung field (principal)
CPT/HCPCS: 71250

== ENCOUNTER → 2019-05-03 | Day surgery (SDC) | payer MEDICARE ==
[2019-04-26 13:21] LABS: BASOPHILS # (AUTO) 0.1 (0.0-0.1); BASOPHILS % 0.8 % (0.0-1.0); EOSINOPHILS # (AUTO) 0.1 (0.0-0.4); EOSINOPHILS % 2.2 % (0.0-6.0); HEMATOCRIT 37.2 % (34.2-44.1); HEMOGLOBIN 11.6 g/dL (12.0-16.0); LYMPHOCYTES # (AUTO) 1.5 (1.0-3.2); LYMPHOCYTES % 24.1 % (18.0-39.1); MEAN CORPUSCULAR HEMOGLOBIN 28.4 pg (28-32); MEAN CORPUSCULAR HGB CONC 31.2 g/dL (31-35); MEAN CORPUSCULAR VOLUME 91.2 fL (81-99); MONOCYTES # (AUTO) 0.6 (0.2-0.8); MONOCYTES % 9.5 % (4.4-11.3); NEUTROPHILS % 63.1 % (38.7-80.0); PLATELET COUNT 278 x10e3/uL (140-360); RED BLOOD COUNT 4.08 x10e6/uL (3.6-5.1); RED CELL DISTRIBUTION WIDTH 14.5 % (11.7-14.4)
[2019-04-26 13:39] LABS: ANION GAP 11.8 mmol/L (8-16); BLOOD UREA NITROGEN 18 mg/dL (7-26); BUN/CREATININE RATIO 21 (6-25); CALCIUM 10.2 mg/dL (8.4-10.2); CARBON DIOXIDE 30 mmol/L (22-29); CHLORIDE 98 mmol/L (98-107); CREATININE, SERUM 0.84 mg/dL (0.57-1.11); EST GLOMERULAR FILTRATION RATE > 60 ML/MIN (60-); GLUCOSE 82 mg/dL (74-118); POTASSIUM 3.8 mmol/L (3.5-5.1); SODIUM 136 mmol/L (136-145)
[~2019-05-03] MED LIST changes: +ACETAMINOPHEN/CODEINE 300MG - 30MG TAB ONE; +ASCORBIC ACID500 MG PO; +BUPIVACAINE 0.25% 30ML SDV INJ ONE; +BUPIVACAINE HCL 0.5% INJ 30 ML VIAL INJ ONE; +CEFAZOLIN SOD 1 GM/NS 50ML 50 ML IV ONE; +DEXAMETHASONE SOD PHOS INJ 4 MG/ML VIAL ONE; +FENTANYL CITRATE/PF 100MCG/2 ML INJ ONE; +FLUTICASONE; +LEVOTHYROXINE50 MCG PO; +LIDOCAINE HCL 2% LOCAL INJ 5 ML SDV VIAL INJ ONE; +LOSARTAN POTAS100 MG PO; +MULTI-VITAMIN1 EACH PO; +MUPIROCIN 2% OINT 22 GM TUBE ONE; +OMEGA 3 1,0001 EACH PO; +OMEPRAZOLE40 MG PO; +ONDANSETRON HCL INJ 2MG/ML 2ML 2 MG/ML VIAL ONE; +PROPOFOL IV EMULSION 10 MG/ML 20 ML VIAL ONE; +SEVOFLURANE INHAL SOLN 250 ML PEN BTL ONE; +ULTRAM 50MG50 MG PO
[2019-05-03 09:15] VITALS: BP 157/74
--- NOTE | 2019-05-03 11:46 | Operative Report ---
DATE OF PROCEDURE: 05/03/2019 SURGEON: Christopher Urbina MD PREOPERATIVE DIAGNOSIS: Stenosing tenosynovitis of left ring finger. POSTOPERATIVE DIAGNOSIS: Stenosing tenosynovitis of left ring finger. OPERATION PERFORMED: Tenovaginotomy of left ring finger. ANESTHESIA: General. HISTORY: The patient is an 89-year-old [id number] female who presents with stenosing tenosynovitis of the left ring finger that is recalcitrant to conservative treatment. The risks, benefits, and alternatives of treatment were discussed with the patient and they are prepared to undergo the procedure as outlined. DESCRIPTION OF PROCEDURE: The patient was brought to the operating theater. After the induction of adequate general/regional anesthesia, the patient was prepped and draped in a supine position. A time out was performed by the entire operating room team. An oblique incision was marked out over the A1 gricelda of the left ring finger. The upper extremity was exsanguinated, and a tourniquet was inflated to a pressure of 250 mmHg. The incision was made through the skin and subcutaneous tissues. All venous tributaries were controlled with bipolar cautery. The incision was deepened through the palmar tissues. The neurovascular bundles on the radial and ulnar sides of the flexor tendon sheath were identified and retracted away from the flexor tendon sheath and preserved. The A1 gricelda of the affected finger was identified and incised longitudinally, taking care to protect and preserve the flexor tendons within the sheath. After the complete length of the gricelda had been transected, the tendons were placed in a range of motion. There was noted to be good motion without any locking. The wound was then copiously irrigated with bacteriostatic saline and closed with 5-0 nylon in an interrupted horizontal mattress fashion. A Marcaine field block was performed at the operative site. The tourniquet was deflated. All the fingers pinked up nicely. A sterile bulky conforming bandage was applied to the hand, and the patient was returned to the recovery room in satisfactory condition and was discharged with a postoperative instruction sheet as well as a followup appointment. Christopher Urbina MD ER/MODL /[id number]
== END | disposition home or self-care (01) ==
LOC: OR 05:23
PROVIDERS: ATTEND Plastic Surgery
DX: M65.342 Trigger finger, left ring finger (principal); I10 Essential (primary) hypertension; E03.9 Hypothyroidism, unspecified; K21.9 Gastro-esophageal reflux disease without esophagitis; Z01.810 Encounter for preprocedural cardiovascular examination; Z01.812 Encounter for preprocedural laboratory examination; Z79.82 Long term (current) use of aspirin
CPT/HCPCS: 26055; 36415; 80048; 85025; 93005; J0690; J1100; J2001; J2405; J2704

== ENCOUNTER → 2020-01-19 | Outpatient (CLI) | payer MEDICARE ==
[~2020-01-19] MED LIST changes: -ACETAMINOPHEN/CODEINE 300MG - 30MG TAB ONE; -BUPIVACAINE 0.25% 30ML SDV INJ ONE; -BUPIVACAINE HCL 0.5% INJ 30 ML VIAL INJ ONE; -CEFAZOLIN SOD 1 GM/NS 50ML 50 ML IV ONE; -DEXAMETHASONE SOD PHOS INJ 4 MG/ML VIAL ONE; -FENTANYL CITRATE/PF 100MCG/2 ML INJ ONE; -LIDOCAINE HCL 2% LOCAL INJ 5 ML SDV VIAL INJ ONE; -MUPIROCIN 2% OINT 22 GM TUBE ONE; -ONDANSETRON HCL INJ 2MG/ML 2ML 2 MG/ML VIAL ONE; -PROPOFOL IV EMULSION 10 MG/ML 20 ML VIAL ONE; -SEVOFLURANE INHAL SOLN 250 ML PEN BTL ONE
--- NOTE | 2020-01-19 15:05 | Diagnostic Imaging Report ---
EXAM: CT Chest WITHOUT contrast INDICATION: ^ADULT BRONCHIECTASIS COMPARISON: CT chest 03/01/2019, 11/23/2018, 07/13/2018 TECHNIQUE: Chest was scanned utilizing a multidetector helical scanner from the lung apex through the level of the adrenal glands without administration of IV contrast. Absence of intravenous contrast decreases sensitivity for detection of lymphadenopathy and vascular pathology. Coronal and sagittal reformations were obtained. Routine protocol was performed. IV CONTRAST: None COMPLICATIONS: None RADIATION DOSE: Total DLP: 537 mGy*cm Estimated effective dose: (DLP x 0.014 x size factor) mSv CTDIvol has been reviewed. It is below the limits set by the Radiation Protocol Committee (RPC). Dose modulation, iterative reconstruction, and/or weight based adjustment of the mA/kV was utilized to reduce the radiation dose to as low as reasonably achievable. FINDINGS: LINES/ TUBES: None. LUNGS AND AIRWAYS: Unchanged chronic bronchiectasis and consolidation within the right middle lobe. Unchanged scattered calcified granulomas, largest in the right lung apex. Unchanged 2 mm nonspecific right upper lobe pulmonary nodule (image 28). A small amount of right upper lobe is probably is also unchanged. Mild lower lobe tubular bronchiectasis is unchanged. Unchanged right lower lobe lung cyst. No new or concerning pulmonary mass, nodule, or consolidation. PLEURA: The pleural spaces are clear. HEART AND MEDIASTINUM: The thyroid gland is normal. No gross thoracic adenopathy. Prominent nonspecific mediastinal lymph nodes are unchanged. Advanced coronary artery disease. Normal heart size. No pericardial effusion. 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 UPPER ABDOMEN: Renal cysts are unchanged. BONES: No acute osseous abnormality. SOFT TISSUES: Left axillary surgical clips. IMPRESSION: 1. No interval changes when compared to the previous chest CT from 03/01/2019. No acute thoracic abnormality. 2. Unchanged chronic right middle lobe consolidation and bronchiectasis. Findings secondary to remote granulomatous disease are stable. Signed by: Benjamín Moore MD on 01/19/2020 3:02 PM
== END ==
LOC: CT 13:43
PROVIDERS: ATTEND Internal Medicine
DX: J47.9 Bronchiectasis, uncomplicated (principal)
CPT/HCPCS: 71250